=== PATIENT | female | born 1970 | race Caucasian/White ===

== ENCOUNTER 2018-08-23 13:05 | Observation (INO) ==
[2018-08-23] MEDS ORDERED: Aspirin 325 MG Tablet PO ONE (13:51)
--- NOTE | 2018-08-23 14:01 | ED ---
HPI General Chief Complaint: Chest Pain Stated Complaint: chest pain Time Seen by Provider: 08/23/18 13:34 Source: patient Mode of arrival: ambulatory Limitations: no limitations History of Present Illness HPI narrative: 47-year-old female presents with chest pain that goes down her left arm over the past couple of days. She states it got constant today so she elected to come in. Quality is pressure. Severity is moderate. She denies taking an aspirin yet today. She states she has had a stress test but it was multiple years ago. She states that she has diabetes, hypertension and high cholesterol. She denies following with a ultrasound applications specialist. She denies any other concurrent complaints. She denies specific modifying factors. She denies other radiation. Related Data Home Medications Medication Instructions Recorded Confirmed Detrol 08/23/18 Lamictal 08/23/18 Seroquel 08/23/18 Wellbutrin XL 08/23/18 albuterol sulfate 2 puff INHALATION Q6H PRN 08/23/18 08/23/18 clonazepam 08/23/18 fluticasone [Flovent HFA] 1 puff INHALATION BID 08/23/18 08/23/18 gabapentin 08/23/18 ipratropium-albuterol 3 ml INHALATION QID 08/23/18 08/23/18 lisinopril 08/23/18 metformin 08/23/18 omeprazole 08/23/18 simvastatin 08/23/18 trazodone 08/23/18 Allergies Allergy/AdvReac Type Severity Reaction Status Date / Time No Known Allergies Allergy Verified 08/23/18 13:10 Review of Systems ROS: all other systems reviewed are negative FORMERLY [facility], [facility] Medical History Medical History COPD (chronic obstructive pulmonary disease) (Acute) Depression (Acute) GERD (gastroesophageal reflux disease) (Acute) HTN (hypertension) (Acute) High cholesterol (Acute) History of deviated nasal septum (Acute) Insomnia (Acute) Mood disorder (Acute) Overactive bladder (Acute) T2DM (type 2 diabetes mellitus) (Acute) Surgical History Surgical History History of bladder surgery (Acute) History of decompression of ulnar nerve (Acute) History of exploratory laparotomy (Acute) Social History Social History Substance History: No History of Abuse Second Hand Smoke Exposure: No Smoking Status: Current every day smoker Tobacco Type: Cigarettes How Often Do You Have a Drink Containing Alcohol: Never Recent Travel in [facility] within the Last 8 Weeks: No Recent Out of Country Travel within the Last 8 Weeks: No Exam Narrative Exam Narrative: GENERAL: 47 y/o female in no apparent distress SKIN: Focused skin assessment warm/dry. HEAD: Atraumatic. Normocephalic. EYES: Pupils equal and round. No scleral icterus. No injection or drainage. ENT: No nasal bleeding or discharge. Mucous membranes pink and moist. NECK: Trachea midline. No JVD. CARDIOVASCULAR: Regular rate and rhythm. No murmur appreciated. RESPIRATORY: No accessory muscle use. Clear to auscultation. Breath sounds equal bilaterally. GASTROINTESTINAL: Abdomen soft, non-tender, nondistended. MUSCULOSKELETAL: No obvious deformities. No clubbing. No cyanosis. No edema. NEUROLOGICAL: Awake and alert. No obvious cranial nerve deficits. Motor grossly within normal limits. Normal speech. PSYCHIATRIC: Appropriate mood and affect; insight and judgment normal. Course Reevaluation(s) Reevaluation #1: patient agrees to admit Consultations Consultation #1: dr beltran agrees to admit Initial Documented Vital Signs Temperature 97.7 F 08/23/18 13:11 Pulse Rate 108 H 08/23/18 13:11 Respiratory Rate 18 08/23/18 13:11 Blood Pressure 113/73 08/23/18 13:11 Pulse Oximetry 98 08/23/18 13:11 Last Documented Vital Signs Temperature 97.7 F 08/23/18 13:11 Pulse Rate 108 H 08/23/18 13:11 Respiratory Rate 18 08/23/18 13:11 Blood Pressure 113/73 08/23/18 13:11 Pulse Oximetry 98 08/23/18 13:37 Medical Decision Making MDM Narrative Medical decision making narrative: will check labs, xr, and dose with aspirin and nitro and reeval Medical Screen Exam Complete: Yes Emergency Medical Condition: Yes Differential Diagnosis Differential Diagnosis: mi, gasritis, pe Lab Data Lab results reviewed: Yes I reviewed the patient's lab results. Result diagrams: 08/23/18 13:55 08/23/18 13:55 Lab Results 08/23/18 08/23/18 08/23/18 Range/Units 13:55 13:55 13:55 CBC w Diff Auto diff final WBC 12.8 H (4.0-11.0) th/mm3 RBC 4.87 (4.00-5.30) mil/mm3 Hgb 13.0 (11.6-15.3) gm/dL Hct 39.9 (35.0-46.0) % MCV 82.0 (80.0-100.0) fL MCH 26.7 L (27.0-34.0) pg MCHC 32.5 (32.0-36.0) % RDW 14.5 (11.6-17.2) % Plt Count 316 (150-450) th/mm3 MPV 8.9 (7.0-11.0) fL Neut % (Auto) 64.2 (16.0-70.0) % Lymph % (Auto) 28.9 (9.0-44.0) % [place] % (Auto) 5.5 (0.0-8.0) % Eos % (Auto) 1.1 (0.0-4.0) % Baso % (Auto) 0.3 (0.0-2.0) % Neut # (Auto) 8.3 H (1.8-7.7) th/mm3 Lymph # (Auto) 3.7 (1.0-4.8) th/mm3 [place] # (Auto) 0.7 (0.0-0.9) th/mm3 Eos # (Auto) 0.1 (0.0-0.4) th/mm3 Baso # (Auto) 0.0 (0.0-0.2) th/mm3 WBC Differential . Differential Comment . PT (9.8-11.6) sec INR Ratio APTT (23.4-31.7) sec D-Dimer Quant (PE/DVT) Cancelled Sodium 136 (136-145) meq/L Potassium 4.1 (3.5-5.1) meq/L Chloride 101 (98-107) meq/L Carbon Dioxide 27.7 (21.0-32.0) meq/L Anion Gap 7 (5-15) meq/L BUN 14 (7-18) mg/dL Creatinine 1.00 (0.50-1.00) mg/dL Estimated GFR 60 L (>89) mL/min Random Glucose 123 H (74-106) mg/dL Calcium 8.5 (8.5-10.1) mg/dL Magnesium (1.5-2.5) mg/dL Total Bilirubin 0.1 L (0.2-1.0) mg/dL AST 18 (15-37) U/L ALT 27 (10-53) U/L Alkaline Phosphatase 69 (45-117) U/L Total Creatine Kinase (26-192) U/L Troponin I Less than 0.02 L (0.02-0.05) ng/mL Total Protein 7.1 (6.4-8.2) g/dL Albumin 3.4 (3.4-5.0) g/dL 08/23/18 08/23/18 Range/Units 13:55 13:55 CBC w Diff WBC (4.0-11.0) th/mm3 RBC (4.00-5.30) mil/mm3 Hgb (11.6-15.3) gm/dL Hct (35.0-46.0) % MCV (80.0-100.0) fL MCH (27.0-34.0) pg MCHC (32.0-36.0) % RDW (11.6-17.2) % Plt Count (150-450) th/mm3 MPV (7.0-11.0) fL Neut % (Auto) (16.0-70.0) % Lymph % (Auto) (9.0-44.0) % [place] % (Auto) (0.0-8.0) % Eos % (Auto) (0.0-4.0) % Baso % (Auto) (0.0-2.0) % Neut # (Auto) (1.8-7.7) th/mm3 Lymph # (Auto) (1.0-4.8) th/mm3 [place] # (Auto) (0.0-0.9) th/mm3 Eos # (Auto) (0.0-0.4) th/mm3 Baso # (Auto) (0.0-0.2) th/mm3 WBC Differential Differential Comment PT 9.4 L (9.8-11.6) sec INR 0.9 Ratio APTT 26.7 (23.4-31.7) sec D-Dimer Quant (PE/DVT) 0.28 Sodium (136-145) meq/L Potassium (3.5-5.1) meq/L Chloride (98-107) meq/L Carbon Dioxide (21.0-32.0) meq/L Anion Gap (5-15) meq/L BUN (7-18) mg/dL Creatinine (0.50-1.00) mg/dL Estimated GFR (>89) mL/min Random Glucose (74-106) mg/dL Calcium (8.5-10.1) mg/dL Magnesium 2.0 (1.5-2.5) mg/dL Total Bilirubin (0.2-1.0) mg/dL AST (15-37) U/L ALT (10-53) U/L Alkaline Phosphatase (45-117) U/L Total Creatine Kinase 66 (26-192) U/L Troponin I (0.02-0.05) ng/mL Total Protein (6.4-8.2) g/dL Albumin (3.4-5.0) g/dL Imaging Data Attestation: I personally reviewed and interpreted this imaging study as follows : Radiologist's impression: Chest X-Ray 08/23/18 13:37 CONCLUSION: No acute cardiopulmonary disease Discharge Plan Discharge Disposition Patient Disposition: ED Admit(ED Internal Use Only) Discharge Order Discharge Orders: ED Use Only Admit Order (Routine); Ordered 08/23/18 Ordered By: Chloe Lucero Discharge Details Diagnosis: Chest pain Physicians Team ED Provider: Chloe Lucero Primary Care Provider: Primary Care AdenikeiJulienne Rxs /Orders / Referrals /Forms Prescriptions: No Action ipratropium-albuterol 0.5 mg-3 mg(2.5 mg base)/3 mL Solution For Nebulization 3 ml INHALATION QID RF: 0 fluticasone [Flovent HFA] 220 mcg/actuation Hfa Aerosol Inhaler 1 puff INHALATION BID RF: 0 albuterol sulfate 90 mcg/actuation Hfa Aerosol Inhaler 2 puff INHALATION Q6H PRN (Reason: Shortness Of Breath) RF: 0 Detrol RF: 0 Lamictal RF: 0 Seroquel RF: 0 Wellbutrin XL RF: 0 clonazepam RF: 0 gabapentin RF: 0 lisinopril RF: 0 metformin RF: 0 omeprazole RF: 0 simvastatin RF: 0 trazodone RF: 0 Discharge Instructions Patient Printed Instructions: Chest Pain (ED) Status ED Status: Admitted Observation Patient
[2018-08-23 14:17] LABS: Chloride 101 meq/L (98-107); Potassium 4.1 meq/L (3.5-5.1); Sodium 136 meq/L (136-145)
[2018-08-23 14:21] LABS: Albumin 3.4 g/dL (3.4-5.0); Anion Gap 7 meq/L (5-15); Blood Urea Nitrogen 14 mg/dL (7-18); Calcium 8.5 mg/dL (8.5-10.1); Carbon Dioxide 27.7 meq/L (21.0-32.0); Glucose,Random 123 mg/dL (74-106)
[2018-08-23 14:22] LABS: Baso % (Auto) 0.3 % (0.0-2.0); Eos # (Auto) 0.1 th/mm3 (0.0-0.4); Eos % (Auto) 1.1 % (0.0-4.0); Hematocrit 39.9 % (35.0-46.0); Lymph # (Auto) 3.7 th/mm3 (1.0-4.8); Lymph % (Auto) 28.9 % (9.0-44.0); Mean Corpuscular HGB Conc 32.5 % (32.0-36.0); Mean Corpuscular Hemoglobin 26.7 pg (27.0-34.0); Mean Platelet Volume 8.9 fL (7.0-11.0); Mono # (Auto) 0.7 th/mm3 (0.0-0.9); Mono % (Auto) 5.5 % (0.0-8.0); Neut # (Auto) 8.3 th/mm3 (1.8-7.7); Neut % (Auto) 64.2 % (16.0-70.0); Platelet Count 316 th/mm3 (150-450); Red Blood Count 4.87 mil/mm3 (4.00-5.30); Red Cell Distribution Width 14.5 % (11.6-17.2); White Blood Count 12.8 th/mm3 (4.0-11.0)
[2018-08-23 14:24] LABS: Alanine Aminotransferase 27 U/L (10-53); Aspartate Aminotransferase 18 U/L (15-37); Glomerular Filtration Rate 60 mL/min (>89)
[2018-08-23 14:26] LABS: Total Protein 7.1 g/dL (6.4-8.2)
[2018-08-23 14:27] LABS: Alkaline Phosphatase 69 U/L (45-117)
[2018-08-23 14:31] LABS: Activated Partial Thrombo Time 26.7 sec (23.4-31.7); D-Dimer 0.28 mg/L FEU (0.00-0.50); INR 0.9 Ratio; Prothrombin Time 9.4 sec (9.8-11.6)
--- NOTE | 2018-08-23 14:31 | XR ---
EXAM DATE: 08/23/2018 2:27 PM EST AGE/SEX: 47 years / Female INDICATIONS: Chest pain, short of breath. CLINICAL DATA: This is the patient's initial encounter. Patient reports that signs and symptoms have been present for 3 days and indicates a pain score of 5/10. MEDICAL/SURGICAL HISTORY: Chronic obstructive pulmonary disease. Hypertension. None. COMPARISON: . FINDINGS: A single AP view of the chest demonstrates the lungs to be symmetrically aerated without evidence of mass, infiltrate or effusion. The cardiomediastinal contours are unremarkable. Osseous structures a re intact. CONCLUSION: No acute cardiopulmonary disease Electronically signed by: Coleman Villela MD Board Certified Radiologist 08/23/2018 2:30 PM EST
--- NOTE | 2018-08-23 14:38 | ECG ---
Date Performed: 08/23/2018 Time Performed: 13:19:52 PTAGE: 47 years EKG: Sinus rhythm POSSIBLE INFERIOR MYOCARDIAL INFARCTION Cannot rule out anterior MA versus abnormalities from lead p lacement. ABNORMAL ECG NO PREVIOUS TRACING DOCTOR: Donell Payne Interpretating Date/Time 08/23/2018 14:37:39
[2018-08-23] MEDS ORDERED: Dextrose 50% in Water 50 ML Vial IV.PUSH PRN (15:42)
--- NOTE | 2018-08-23 15:50 | P.HPIM ---
History of Present Illness Primary Care Physician: No Primary Care Physician Chief Complaint: chest pain History of Present Illness: patient is a 47 y/o female with history of hypertension, diabetes, dyslipidemia,GERD who presented to ER with chest pain. she says that the pain started two-three days ago. it was ' coming and going' in the beginiing but it's been constant since yesterday. pain is substernal and was associated with some nausea and ' some tightness' of the left arm and left hand. she denies any vomiting, diaphoresis. she doesn't report any specific aggravating or alleviating factors. Review of Systems Review of Systems: all other systems reviewed are negative [facility] Medical History Medical History COPD (chronic obstructive pulmonary disease) (Acute) Depression (Acute) GERD (gastroesophageal reflux disease) (Acute) HTN (hypertension) (Acute) High cholesterol (Acute) History of deviated nasal septum (Acute) Insomnia (Acute) Mood disorder (Acute) Overactive bladder (Acute) T2DM (type 2 diabetes mellitus) (Acute) Surgical History Surgical History History of bladder surgery (Acute) History of decompression of ulnar nerve (Acute) History of exploratory laparotomy (Acute) Family History Family History Other CAD (coronary artery disease) Social History Social History Substance History: No History of Abuse Second Hand Smoke Exposure: No Smoking Status: Current every day smoker Tobacco Type: Cigarettes How Often Do You Have a Drink Containing Alcohol: Never Recent Travel in [facility] within the Last 8 Weeks: No Recent Out of Country Travel within the Last 8 Weeks: No Immunization History Tetanus Immunization: Unsure Medications and Allergies Allergies Allergy/AdvReac Type Severity Reaction Status Date / Time No Known Allergies Allergy Verified 08/23/18 13:10 Home Medications Medication Instructions Recorded Confirmed Type Detrol 08/23/18 History Lamictal 08/23/18 History Seroquel 08/23/18 History Wellbutrin XL 08/23/18 History albuterol sulfate 2 puff INHALATION Q6H PRN 08/23/18 08/23/18 History clonazepam 08/23/18 History fluticasone [Flovent HFA] 1 puff INHALATION BID 08/23/18 08/23/18 History gabapentin 08/23/18 History ipratropium-albuterol 3 ml INHALATION QID 08/23/18 08/23/18 History lisinopril 08/23/18 History metformin 08/23/18 History omeprazole 08/23/18 History simvastatin 08/23/18 History trazodone 08/23/18 History Active Medications: Active Medications Albuterol (Ventolin Hfa Inh) 2 puff INH Q6H PRN PRN Reason: Shortness Of Breath Dextrose (D50w Vial) 50 ml IV.PUSH UNSCH PRN PRN Reason: PER HYPOGLYCEMIA PROTOCOL Fluticasone Propionate (Flovent Hfa 220 Mg Inh) 1 puff INH BID MARIELENA Glucagon (Glucagon Inj) 1 mg OTHER PRN PRN PRN Reason: for Hypoglycemia Protocol Sodium Chloride (Ns Inj) 1,000 mls @ 100 mls/hr IV.CONT .Q10H MARIELENA Insulin Aspart (Novolog Insulin Correctional Sugar Inj) 0 unit SQ ACHS MARIELENA; Protocol Sodium Chloride (Ns Flush) 2 ml IV.FLUSH UNSCH PRN PRN Reason: FLUSH AFTER USING IV ACCESS Sodium Chloride (Ns Flush) 2 ml IV.FLUSH BID MARIELENA Sodium Chloride (Ns Flush) 2 ml IV.FLUSH PRN PRN PRN Reason: FLUSH AFTER USING IV ACCESS Physical Exam Vital signs: Vital Signs 08/23/18 13:11 08/23/18 13:37 Temperature 97.7 F Pulse Rate 108 H Respiratory Rate 18 Blood Pressure 113/73 Pulse Oximetry 98 98 Intake & Output 08/22/18 08/23/18 08/23/18 18:59 06:59 18:59 Weight 101.4 kg Constitutional no acute distress Routine HEENT Exam Eye: Present PERRL Routine Neck Exam Present supple Routine Respiratory Exam Present CTA bilaterally Comments: chest is mildly tender to touch. Routine Cardiovascular Exam Present RRR Routine Abdominal Exam Present soft Routine Extremities Exam Comments: no pedal edema. Routine Neurological Exam Present alert and oriented X3 Results Labs CBC & Chem 7: 08/23/18 13:55 08/23/18 13:55 Imaging Impressions Chest X-Ray 08/23/18 13:37 CONCLUSION: No acute cardiopulmonary disease Caprini VTE Risk Assessment Caprini VTE Risk Assessment: Moderate/High Risk (score >= 2) Caprini Risk Assessment Model: Point Value = 1 Point Value = 2 Point Value = 3 Point Value = 5 Age 41-60 Minor surgery BMI > 25 kg/m2 Swollen legs Varicose veins or History of unexplained or recurrent spontaneous Oral contraceptives or hormone replacement Sepsis (< 1 month) Serious lung disease, including pneumonia (< 1 month) Abnormal pulmonary function Acute myocardial infarction Congestive heart failure (< 1 month) History of inflammatory bowel disease Medical patient at bed rest Age 61-74 Arthroscopic surgery Major open surgery (> 45 min) Laparoscopic surgery (> 45 min) Malignancy Confined to bed (> 72 hours) Immobilizing plaster cast Central venous access Age >= 75 History of VTE Family history of VTE Factor V Leiden Prothrombin 20779H Lupus anticoagulant Anticardiolipin antibodies Elevated serum homocysteine Heparin-induced thrombocytopenia Other congenital or acquired thrombophilia Stroke (< 1 month) Elective arthroplasty Hip, pelvis, or leg fracture Acute spinal cord injury (< 1 month) Prophylaxis Regimen: Total Risk Factor Score Risk Level Prophylaxis Regimen 0-1 Low Early ambulation 2 Moderate Order ONE of the following: *Sequential Compression Device (SCD) *Heparin 5000 units SQ BID 3-4 Higher Order ONE of the following medications: *Heparin 5000 units SQ TID *Enoxaparin/Lovenox 40 mg SQ daily (WT < 150 kg, CrCl > 30 mL/min) *Enoxaparin/Lovenox 30 mg SQ daily (WT < 150 kg, CrCl > 10-29 mL/min) *Enoxaparin/Lovenox 30 mg SQ BID (WT < 150 kg, CrCl > 30 mL/min) AND/OR *Sequential Compression Device (SCD) 5 or more Highest Order ONE of the following medications: *Heparin 5000 units SQ TID (Preferred with Epidurals) *Enoxaparin/Lovenox 40 mg SQ daily (WT < 150 kg, CrCl > 30 mL/min) *Enoxaparin/Lovenox 30 mg SQ daily (WT < 150 kg, CrCl > 10-29 mL/min) *Enoxaparin/Lovenox 30 mg SQ BID (WT < 150 kg, CrCl > 30 mL/min) AND *Sequential Compression Device (SCD) Assessment and Plan Plan A/P - chest pain- atypical received a dose of aspirin in ER- first troponin and EKG negative- will trend the cardiac enzymes- -diabetes mellitus start on accu-check with SSI -hypertension; will verify the home meds and resume. -COPD- with no exacerbation resume home inhalers. -GERD start on PPI -DVT prophylaxis with subq Lovenox Discussed Condition With: ER physician and the patient. Discharge Planning: home when cardiac w/u complated.
[2018-08-23] MEDS: Sod Chloride 0.9% Inj 1,000 ML IV.CONT SCH (16:01)
[2018-08-23] MEDS: Insulin NovoLOG Aspart Correctional Sugar Inj SQ SCH ×2 (16:46→23:57)
[2018-08-23 17:19] LABS: Creatine Kinase 64 U/L (26-192)
[2018-08-23] MEDS ORDERED: Regadenoson Inj 0.4 MG/5 ML Syringe IV.PUSH ONE (17:58)
--- NOTE | 2018-08-23 20:58 | P.EN ---
unable to verify clonazepam on [employer] - it appears that patient may have relocated from [place] in June - started clonazepam 1 mg q12h in lieu of reported 2 mg BID until patient can verify dose with a prescription bottle or other method to avoid possible benzo withdrawal. Further management per daytime attending - other home medications reconciled.
[2018-08-23] MEDS ORDERED: clonazePAM 1 MG Tablet PO PRN (20:59)
[2018-08-23] MEDS ORDERED: clonazePAM 1 MG Tablet PO SCH (21:00)
[2018-08-23] MEDS ORDERED: traZODone 50 MG Tablet PO SCH (21:00)
[2018-08-23 21:07] LABS: Creatine Kinase 56 U/L (26-192)
[2018-08-23] MEDS: lamoTRIgine 100 MG Tablet PO SCH (23:56)
[2018-08-23] MEDS: buPROPion 150 MG 12 HR Tablet PO SCH (23:57)
[2018-08-23] MEDS: Gabapentin 100 MG Capsule PO SCH (23:57)
[2018-08-23] MEDS: QUEtiapine 25 MG Tablet PO SCH (23:58)
[2018-08-24] MEDS: Sod Chloride 0.9% Inj 1,000 ML IV.CONT SCH (03:12)
--- NOTE | 2018-08-24 05:34 | ECG ---
Date Performed: 08/23/2018 Time Performed: 20:27:55 PTAGE: 47 years EKG: Sinus rhythm WITH FIRST DEGREE AV BLOCK ABNORMAL ECG No significant change from prior electrocardiogram. PREVIOUS TRACING : 08/23/2018 17.05 DOCTOR: Donell Payne Interpretating Date/Time 08/24/2018 05:32:19
--- NOTE | 2018-08-24 05:35 | ECG ---
Date Performed: 08/23/2018 Time Performed: 17:05:11 PTAGE: 47 years EKG: Sinus rhythm WITH FIRST DEGREE AV BLOCK ABNORMAL ECG Probably no significant change from prior electrocardiogram. PREVIOUS TRACING : 08/23/2018 13.19 DOCTOR: Donell Payne Interpretating Date/Time 08/24/2018 05:34:26
--- NOTE | 2018-08-24 07:52 | P.PNIM ---
Subjective Interval history: f/u; chest pain in no acute distress. denies chest pain or sob. no new complaints. awaiting stress test. Physical Exam Vital signs: Vital Signs 08/23/18 13:11 08/23/18 13:37 08/23/18 15:33 Temperature 97.7 F Pulse Rate 108 H 89 Respiratory Rate 18 16 Blood Pressure 113/73 104/54 L Pulse Oximetry 98 98 98 08/23/18 20:00 08/23/18 20:29 08/23/18 20:30 Temperature 96.4 F L Pulse Rate 89 92 H Respiratory Rate 20 Blood Pressure 118/68 Pulse Oximetry 100 94 L 08/24/18 00:00 08/24/18 00:05 08/24/18 03:09 Temperature 96.9 F L 97.0 F L Pulse Rate 89 87 85 Respiratory Rate 20 18 Blood Pressure 98/52 L 98/53 L Pulse Oximetry 97 93 L 08/24/18 04:00 08/24/18 04:30 Temperature 96.4 F L Pulse Rate 84 86 Respiratory Rate 20 Blood Pressure 120/59 L Pulse Oximetry 97 Intake & Output 08/23/18 08/24/18 08/24/18 18:59 06:59 18:59 Intake Total 1000 / 1000 Balance 1000 / 1000 Weight 101.4 kg 101 kg Intake: IV 1000 / 1000 NS Inj 1,000 ML @ 100 mls/hr IV 1000 / 1000 .CONT .Q10H MARIELENA Rx#:[id number] Other: # Voids 1 Date of Last Bowel Movement 08/23/18 Weight On Admission 101 kg Constitutional no acute distress Routine Respiratory Exam Present CTA bilaterally Routine Cardiovascular Exam Present RRR Routine Abdominal Exam Present soft Routine Extremities Exam Comments: no pedal edema. Routine Neurological Exam Present alert and oriented X3 Results Labs CBC & Chem 7: 08/23/18 13:55 08/23/18 13:55 Imaging Imaging: Impressions Chest X-Ray 08/23/18 13:37 CONCLUSION: No acute cardiopulmonary disease Assessment and Plan Plan A/P - chest pain- atypical- now has resolved. received a dose of aspirin in ER- troponin trend negative. stress test today. -diabetes mellitus started on accu-check with SSI -hypertension; resumed home meds. -COPD- with no exacerbation resumed home inhalers. -GERD started on PPI -DVT prophylaxis with subq Lovenox Discharge Planning: home today if stress test negative. Progress Note: Quality VTE Deep Vein Thrombosis/Pulmonary Embolism Present on Admission: No
[2018-08-24] MEDS: Insulin NovoLOG Aspart Correctional Sugar Inj SQ SCH ×2 (08:06→12:10)
[2018-08-24] MEDS: buPROPion 150 MG 12 HR Tablet PO SCH (08:59)
[2018-08-24] MEDS: Gabapentin 100 MG Capsule PO SCH (08:59)
[2018-08-24] MEDS: lamoTRIgine 100 MG Tablet PO SCH (08:59)
[2018-08-24] MEDS: QUEtiapine 25 MG Tablet PO SCH (09:00)
[2018-08-24] MEDS ORDERED: Lisinopril 10 MG Tablet PO SCH (09:00)
[2018-08-24] MEDS ORDERED: Tolterodine Tartrate LA 4 MG Capsule PO SCH (09:00)
[2018-08-24] MEDS ORDERED: Enoxaparin Inj 40 MG/0.4 ML Syringe SQ SCH (09:00)
--- NOTE | 2018-08-24 11:45 | NM ---
EXAM DATE: 08/24/2018 11:36 AM EST AGE/SEX: 47 years / Female INDICATIONS:Angina. . Substernal chest pain. CLINICAL DATA: This is the patient's initial encounter. Patient reports that signs and symptoms have been present for 3 days and indicates a pain score of 3/10. MEDICAL/SURGICAL HISTORY: Chronic obstructive pulmonary disease. Gastroesophageal reflux disea se. Hypercholesterolemia. Hypertension, Type 2 diabetes. . Bladder surgery, exploratory laparotomy . COMPARISON: No prior exams available for comparison. DOSE: 11.1 mCi Tc 99m Myoview at rest 35.0 mCi [id number] at stress 0.4 mg Lexiscan STRESS SYMPTOMS: Heart racing. EJECTION FRACTION: >70 % TECHNIQUE: The patient underwent pharmacologic stress with infusion of prescribed dose. Continuous ECG tracing was monitored during stress. Gated SPECT imaging was performed after stress and conventi onal SPECT imaging was performed at rest. The examination was performed on a SPECT/CT scanner, both attenuation and non-corrected datasets were reviewed. FINDINGS: Distribution: The maximum perfused segment at stress is in the septal wall. Perfusion Study: The pattern of perfusion at stress is within normal limits. Gated Study: There are intact wall motion and wall thickening without hypokinetic or dyskinetic segm ents. The ejection fraction is calculated at >70%. RISK CATEGORY: Low (<1% Annual Mortality Rate) CONCLUSION: 1. Negative examination. Electronically signed by: Elicia You MD Board Certified Radiologist 08/24/2018 11:44 AM EST
--- NOTE | 2018-08-24 13:32 | TR ---
Date Performed: 08/24/2018 Time Performed: 10:52:01 DOCTOR: Zachary Wolfe DRUG LIST: CLINICAL HISTORY: REASON FOR TEST: Angina REASON FOR ENDING: OBSERVATION: CONCLUSION: COMMENTS: Lexiscan stress test was performed under standard four minute protocol. Radionuclide was injected one minute prior to ending the test. No electrocardiographic abormalities were present t o suggest ischemia. Nuclear imaging and interpretation are pending.
== END 2018-08-24 13:25 | disposition home or self-care (01) ==
LOC: PHEDA 13:05 → PHED 13:05 → PH3 17:27
PROVIDERS: ADMIT Internal Medicine; ATTEND Internal Medicine
CPT/HCPCS: 71010; 71045; 78452; 80053; 82550; 82948; 82962; 83735; 84484; 85025; 85379; 85610; 85730; 93005; 93017; 96360; 96361; 99285; A9502; G0378; J1650; J2785; J7030; Q9969